=== PATIENT | female | born 1940 | race Caucasian/White ===

== ENCOUNTER 2016-09-25 12:03 | Emergency (ER) | payer MEDICARE ==
[2016-09-25 12:03] LABS: BASOPHILS 0.2 %; BASOPHILS ABSOLUTE 0.02 10/3/uL (0.0-0.16); EOSINOPHILS 0.8 %; EOSINOPHILS ABSOLUTE 0.09 10/3/uL (0.0-0.53); ER CBC TAT 0 Hrs 03 Mins; HEMATOCRIT 44.8 % (36.0-48.0); HEMOGLOBIN 14.8 g/dL (12.0-16.0); IMMATURE GRANULOCYTES 0.3 %; IMMATURE GRANULOCYTES ABSOLUTE 0.03 10/3/uL (0.0-0.11); LYMPHOCYTES ABSOLUTE 2.13 10/3/uL (0.67-4.30); MEAN CORPUSCULAR HEMOGLOB 30.5 pg (26.0-34.0); MEAN PLATELET VOLUME 11.6 fL (9.2-13.0); NEUTROPHILS 69.7 %; NEUTROPHILS ABSOLUTE 8.28 10/3/uL (2.02-8.40); PLATELET COUNT 158 10/3/uL (150-400); RBC DISTRIBUTION WIDTH 14.2 % (12.0-16.0); RED CELL COUNT 4.85 10/6/uL (4.0-5.6); WHITE BLOOD CELLS 11.9 10/3/uL (4.5-10.5)
[~2016-09-25 12:03] MED LIST: ADVIL PO; ALLEGRA180 PO; ASAB PO; ASPERCREME TOP; COZ50 PO; ELIQUIS 5 MG TAB5 MG PO; FLECAINIDE100 MG PO; FLECAINIDE50 MG PO; HALF81 PO; KLOR-CON M2020 MEQ PO; L20 PO; LOP25 PO; PACERONE400 MG PO; TOPXL100 PO; ZESTRIL10 MG PO
[2016-09-25 12:04] LABS: MANUAL DIFF NO %; MEAN CORPUSCULAR VOLUME 92.4 fL (80-100)
[2016-09-25 12:20] LABS: BUN (BLOOD UREA NITROGEN) 20 MG/DL (6-23); CALCIUM, SERUM 9.4 MG/DL (8.5-10.4); CHEST PAIN PROFILE TAT 0 Hrs 20 Mins; CHLORIDE, SERUM 106 MMOL/L (96-112); CO2 (CARBON DIOXIDE) 31 MMOL/L (24-34); CREATININE 1.03 MG/DL (0.55-1.02); GFR AFRICAN AMERICAN 62 ML/MIN (>=60); GFR NON AFRICAN AMERICAN 53 ML/MIN (>=60); GLUCOSE, SERUM 119 MG/DL (60-99); INTERNATIONAL NORMAL RATI 1.5 UNITS (-); PARTIAL THROMBO TIME 34.8 SEC (22.5-37.2); POTASSIUM, SERUM 3.9 MMOL/L (3.5-5.3); PROTIME (NOT ORD) 18.2 SEC (12.0-14.5); SODIUM, SERUM 144 MMOL/L (135-148); TROPONIN I <0.02 NG/ML (<0.05)
== END 2016-09-25 13:03 | disposition home or self-care (01) ==
LOC: ER 12:03
PROVIDERS: Emergency Medicine
DX: I48.91 Unspecified atrial fibrillation (principal); I10 Essential (primary) hypertension; Z88.0 Allergy status to penicillin; Z79.899 Other long term (current) drug therapy
CPT/HCPCS: 71010; 80048; 83735; 84484; 85025; 85610; 85730; 93005; 99285

== ENCOUNTER 2017-03-22 22:21 | Inpatient (IN) | payer MEDICARE ==
[~2017-03-22] VITALS: Ht 162.6 cm; Wt 79.8 kg
--- NOTE | ~2017-03-22 | HP ---
History And Physical [place] [id number] [place]. [address] NAME: DENVER MA : 42 STATUS : REG ER PAT#: [id number] AGE: 76 ADM/REG DATE : 03/22/17 MR#: [id number] REPORT SERV DATE: 03/23/17 DICTATED BY: KATELYN FAJARDO DATE: 03/23/17 REPORT STATUS : Draft TRANSCRIBED BY: PILI DATE: 03/23/17 DATE OF ADMISSION: 03/22/2017 CHIEF COMPLAINT: Loss of speech suddenly at 9 o'clock today. HISTORY OF PRESENT ILLNESS: The patient is a 76-year-old female with past medical history of hypertension, atrial fibrillation, tobacco use approximately three cigarettes a day who presents with family member after having sudden loss of speech at approximately 0915 hours when talking to her what appears to be sister. Family member called nephew who lives close by. He came in and evaluated patient and brought patient in for possible stroke type symptoms. Symptoms resolved after a few minutes. The patient never had these type symptoms before, has had dizziness type episodes years ago but not currently. All symptoms resolved fairly quickly. No additional residuals noted. No pain, chest pain, headache, nausea, vomiting, dizziness, slightly anxious about being in the hospital. She does have mild shortness of breath and no O2 at baseline. No diarrhea or dizziness. There is no worsening or relieving symptoms, and also symptoms appear to have resolved except for shortness of breath when lying down, improved while sitting up. The patient was reported to have history of atrial fibrillation but stopped Eliquis approximately 2 months ago secondary to cost prohibitive, was going to talk to her PCP at next visit in May for alternative but this visit was not until May. ADDITIONAL REVIEW OF SYSTEMS: For additional review of systems, 10-point review of systems negative except for that noted in the HPI. PAST MEDICAL HISTORY: Atrial fibrillation, hypertension, has had C-spine surgery and left shoulder, history of mild swallowing difficulties ever since her C-spine surgery but this has also remained stable. FAMILY HISTORY: Diabetes, coronary artery disease, hypertension. SOCIAL HISTORY: Currently three cigarettes a day smoker. No alcohol or illicits. Accompanied by a family at bedside. ALLERGIES: PENICILLIN. PHYSICAL EXAMINATION: VITAL SIGNS: Blood pressure initially 194/84, down to 180s over 70, temperature 98.5, pulse 70, respirations 16, O2 saturations 96% on 2 L. GENERAL: Slightly elderly, in no acute distress. EYES: No scleral icterus ENT: She does have pursed lip breathing. Tongue midline. RESPIRATORY: Bilateral expiratory wheeze. Mildly increased AP diameter and pursed lip breathing. No clubbing. CV: Regular rate. No rubs. No pedal edema. GI: Soft, nontender, nondistended. Bowel sounds positive. : Deferred. MUSCULOSKELETAL: Moves all extremities x4. History And Physical [address] [address] NAME: DENVER MA : 41 STATUS : REG ER PAT#: [id number] AGE: 76 ADM/REG DATE : 03/22/17 MR#: [id number] REPORT SERV DATE: 03/23/17 DICTATED BY: KATELYN FAJARDO DATE: 03/23/17 REPORT STATUS : Draft TRANSCRIBED BY: MODRuperto DATE: 03/23/17 SKIN: Warm, dry. LYMPH: No cervical or supraclavicular lymphadenopathy. HEME: No bleeding or bruising. NEURO: Alert and oriented. Normal vocal kodi. Symmetrical smile. Tongue midline. Reflexes symmetrical in Achilles and knees. Gait; walks with a walker, does have a mild limp on left side which is chronic per family from prior cervical surgery and fall. Otherwise symmetrical wrinkled brow, and EOMI. PSYCH: Appropriate mood and affect although mildly anxious about being in the hospital. DATA: Brain without contrast, noted for small approximately 14 x 16 mm suspect acute to subacute infarct left anterior frontal lobe cortex adjacent subcortical deep white matter. No additional acute findings. CBC: WBC count 14.3, H and H 13.5 and 40.8, platelets of 179, INR 1.1. CMP grossly within normal limits with mildly elevated blood sugar at 115, globulin at 4.3, troponin is negative. LFTs within normal limits. HOME MEDICATIONS: Still pending. DATA: EKG; normal sinus rhythm, rate of 66, QTc 436. Questionable septal changes but no acute ST changes. ASSESSMENT AND PLAN: 1. Likely new subacute stroke. 2. Hypertension. 3. Atrial fibrillation. 4. Leukocytosis. 5. Azotemia. 6. Likely early chronic obstructive pulmonary disease with smoking history. PLAN: 1. For acute stroke, symptoms resolved, non-tPA discussed with Dr. Toro ED physician but we will continue TIA stroke workup, MRI echocardiogram, carotid echoes. Unfortunately, the patient stopped Eliquis approximately two weeks ago although the patient does not recall or have a feelings of having acute atrial fibrillation and is currently normal sinus rhythm. This is most likely a component . We will order bubble study with echocardiogram, monitor on cardiac tele and continue initiation of order set. 2. Hypertension, permissive per protocol. Confirm home medications. 3. Atrial fibrillation. Stopped Eliquis secondary to cost prohibitive, currently in atrial fibrillation but will need to reassess. We will have Case Management evaluate additional anticoagulations. We will need to discuss with Neurology before restarting anticoagulation in acute to subacute stroke setting to prevent hemorrhagic conversion but we will continue with heparin subcu along with aspirin and additional recommendations pending echocardiogram. 4. Leukocytosis. Check UA, monitor. 5. Azotemia, IV fluids. 6. Likely early chronic obstructive pulmonary disease. We will give steroids, O2, does History And Physical [address] [address] NAME: DENVER MA : 41 STATUS : REG ER PAT#: [id number] AGE: 76 ADM/REG DATE : 03/22/17 MR#: [id number] REPORT SERV DATE: 03/23/17 DICTATED BY: KATELYN FAJARDO DATE: 03/23/17 REPORT STATUS : Draft TRANSCRIBED BY: PILI DATE: 03/23/17 have pursed lip breathing, approximately 3 cigarettes a day. Needs to stop smoking. Re-educated. We will place nicotine patch. Outpatient PFTs if not already completed to follow up with PCP as an outpatient. DDN/MODL Katelyn Fajardo MD / [id number]
--- NOTE | ~2017-03-22 | DS ---
Discharge Summary [facility] [address] [place]. [address] NAME: DENVER MA : 41 STATUS : DIS IN PAT#: [id number] AGE: 76 ADM/REG DATE : 03/24/17 MR#: [id number] REPORT SERV DATE: 03/29/17 DICTATED BY: CATHY CORBIN DATE: 03/28/17 REPORT STATUS : Draft TRANSCRIBED BY: PILI DATE: 03/28/17 ADMISSION DATE: 03/24/2017 DISCHARGE DATE: 03/28/2017 DISCHARGE DIAGNOSES: 1. 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 2. Atrial fibrillation with rapid ventricular response. 3. Hypertension. 4. Troponinemia. 5. Chronic obstructive pulmonary disease. 6. Borderline diabetes. 7. Asymptomatic left subclavian stenoses suspected. CONSULTANTS: Neurology, Dr. Washington; Cardiology, Dr. Cabrera with [facility]. FOLLOWUP: 1. The patient is to follow up with [facility], already has an appointment on 04/22/2017. 2. The patient is to follow up with Dr. Richmond, her it security analyst, in two to three weeks. Also, the patient will continue with home health, physical therapy, nursing, and aides. 3. The patient should follow up with Vascular Surgery Service in two months for possible left subclavian stenosis. IMAGIN. Echocardiogram with the ejection fraction of 55% with mild diastolic dysfunction. 2. CT of the brain without contrast, 03/22/2017, with a small 14 x 16 mm suspected acute to subacute infarct in the left anterior frontal lobe cortex and adjacent subcortical deep white matter. 3. MRI of the brain showing evidence of an old left frontal infarction with a small partially hemorrhagic, stable. Mild atrophy. No acute infarct or bleed. 4. MRA of the brain and neck showing atherosclerotic changes in the MCA M3 segment on the right. No evidence of any intracranial vessel cut off or high-grade stenosis or aneurysmal change. The superior portion of the internal carotids bilaterally demonstrate diffuse atherosclerotic changes, however, not associated with any high- grade stenoses. There appears to be a short-segment high-grade stenosis of the proximal subclavian distal to the vertebral artery. DISCHARGE MEDICATIONS: Aspirin 81 mg p.o. daily; Lipitor 80 mg p.o. q.h.s. for one week, then to resume 40 mg p.o. q.h.s.; Plavix 75 mg p.o. daily; diltiazem CD 120 mg p.o. daily; Danita 90 mg p.o. q.a.m.; losartan 50 mg p.o. b.i.d., hold for systolic blood pressure less than 135; metoprolol succinate 50 mg p.o. b.i.d.; Lasix 40 mg p.o. q.a.m. p.r.n. per home dose; metoprolol-XL 500 mg p.o. b.i.d. with breakfast and supper. HOSPITALIST: 1. Dr. Lan Fajardo, Dr. Felix Luevano, Dr. Corbin. 2. Other attending is Critical Care. Discharge Summary [address] [address] NAME: DENVER MA : 41 STATUS : DIS IN PAT#: [id number] AGE: 76 ADM/REG DATE : 03/24/17 MR#: [id number] REPORT SERV DATE: 03/29/17 DICTATED BY: CATHY CORBIN DATE: 03/28/17 REPORT STATUS : Draft TRANSCRIBED BY: PILI DATE: 03/28/17 HOSPITAL COURSE: This is a 3-[id number][age][id number]-female with a past medical history of chronic atrial fibrillation, hypertension presented with a sudden acute loss of speech while having a conversation with a family member around 9 o'clock that day, and the patient was brought to the emergency department. The patient has a history of atrial fibrillation and was placed on Eliquis, however, the patient has stopped taking her Eliquis due to cost as an outpatient. However, upon arrival to the ER, the patient had a CT of the brain with findings of a suspected acute versus subacute left frontal CVA. Neurology was consulted, and per discussion with Neurology and the ER physician, the patient was not a tPA candidate. She was admitted to the Hospitalist Service, placed on telemetry and Case Management was consulted for anticoagulation cost for the patient. However, the patient was later seen by Dr. Felix Luevano and also Cardiology was consulted for assistance for the patient's atrial fibrillation. The patient went into atrial fibrillation with RVR and was placed on a Cardizem drip and later developed significant sinus pauses and required transfer to ICU for management and cared for by ICU/Critical Care Services. The patient also had a MRI with findings of an old hemorrhagic conversion around her ischemic CVA. Due to her admitting findings, Neurology suspects that she did have a subacute CVA and also recommended that the patient is not an anticoagulation candidate due to the small hemorrhagic conversion found. The patient was later transferred out of the ICU, and the patient was later cared for by Dr. Corbin initiating on 03/26/2017. Also, the patient was seen by Speech Therapy in consultation. Also, the patient was seen by Physical Therapy. Initially, Physical Therapy recommended for the patient to be discharged to home with family for assistance. However, on the day of discharge, they later recommended for inpatient rehab considering that the patient would be at home alone for the majority of the day. Her son will be with her at night. However, with discussion with the son, the son states that he can perform his work at home, so that he can help to care for his mother and would provide 31/01 care. Also, the patient refused inpatient rehab and was alert and oriented. Also, the patient's cardiac medications were changed per Cardiology, and the patient's metoprolol succinate was changed to 50 mg p.o. b.i.d., and the patient was continued also on diltiazem CD at 120 mg p.o. q.a.m. per Cardiology recommendation. Also, the patient had an incidental finding of asymptomatic left subclavian stenosis on her MRI with recommendation to follow up with Vascular Surgery in two to three months per Neurology recommendations. The patient was educated on fall risks as well as diabetes management for her borderline diabetes, which according to chart dates back to 2014 for which the patient was unaware. The patient does not follow up with the primary care physician, and an appointment with [facility] was set up for the patient on 04/22/2017 for a new primary care. The patient was deemed stable for discharge and discharged to home with family who will care for the patient 31/01. Also, the patient was informed about increased risk of hemorrhagic bleed/hemorrhage while on aspirin and Plavix which was recommended by Neurology as well as the risk of recurrent CVAs in the future with atrial fibrillation. Neurology states the patient is not anticoagulation candidate, but did recommend for the patient to start aspirin and Plavix for which the patient initiated during her hospital course, per Neurology recommendations. This discharge required greater than 35 minutes. [facility] Discharge Summary [address] [place]. [address] NAME: DENVER MA : 41 STATUS : DIS IN PAT#: [id number] AGE: 76 ADM/REG DATE : 03/24/17 MR#: [id number] REPORT SERV DATE: 03/29/17 DICTATED BY: CATHY CORBIN DATE: 03/28/17 REPORT STATUS : Draft TRANSCRIBED BY: PILI DATE: 03/28/17 Cathy Corbin M.D. / [id number] CC: Janice Schaffer M.D. [facility]
--- NOTE | ~2017-03-22 | CN ---
Consultation Report [facility] [address] [place]. [address] NAME: DENVER PRATT : 42 STATUS : ADM Henry PAT#: [id number] AGE: 76 ADM/REG DATE : 03/23/17 MR#: [id number] REPORT SERV DATE: 03/23/17 DICTATED BY: JAY PIMENTEL DATE: 03/23/17 REPORT STATUS : Draft TRANSCRIBED BY: PILI DATE: 03/23/17 CARDIOLOGY CONSULTATION DATE OF CONSULTATION: 03/23/2017 PRIMARY MOTOR VEHICLE LECTURER: Dr. Richmond. CHIEF COMPLAINT: Aphasia. REASON FOR CONSULTATION: Atrial flutter, abnormal troponin. SOURCE: The patient and her chart. HISTORY OF PRESENT ILLNESS: Ms. Pratt is a very pleasant 76-year-old white woman, patient of my partner, Dr. Richmond, with history of atrial fibrillation. She was on long-term anticoagulation with Eliquis but reportedly could not afford this and stopped it two or three months ago. She has had difficulty with rate control and has had chronic systolic congestive heart failure with last LVEF of 35% by most recent echo in July. She was in her usual state of health until last night about 9 p.m. when she was talking with her sister in-law on the phone and noticed expressive aphasia, which lasted several minutes. It then resolved, and she could speak again. She also had some visual changes like a dark curtain coming down both eyes though she could still see. She did not have any focal weakness. No palpitations or syncope. She has had occasional chest tightness but none in the last 24 hours. She does have dyspnea on exertion. She has noticed some hematuria as well and for that reason, and the inability to afford the medication, she did not take the Eliquis. REVIEW OF SYSTEMS: All other systems are negative. ALLERGIES: PENICILLINS. MEDICATIONS AT HOME: Included aspirin, Danita, metoprolol, losartan, and Lasix. CARDIAC RISK FACTORS: Include hypertension, former tobacco. Denies diabetes, cholesterol, or family history. SOCIAL HISTORY: The patient lives in [place]. She is . She has two children, alive and well. She is retired. FAMILY HISTORY: Negative for coronary disease at young age. PAST MEDICAL HISTORY: Significant for atrial fibrillation for the last three or four years. She has had two attempts at cardioversion without success. She has never had any ablation. She has had frequent UTIs. No history of stroke. Left elbow surgery, left knee surgery, Consultation Report [address] [place]. [address] NAME: DENVER PRATT : 42 STATUS : ADM Henry PAT#: [id number] AGE: 76 ADM/REG DATE : 03/23/17 MR#: [id number] REPORT SERV DATE: 03/23/17 DICTATED BY: JAY PIMENTEL DATE: 03/23/17 REPORT STATUS : Draft TRANSCRIBED BY: PILI DATE: 03/23/17 tonsillectomy, cataract surgery, and C-spine surgery. PHYSICAL EXAMINATION: GENERAL: She is a well-developed, well-nourished, elderly white woman, in no acute distress. VITAL SIGNS: Blood pressure 168/71, pulse is 110 and irregular, respirations 24, temperature 98 degrees, weight is 79.8 kilos, height is 162 cm. HEENT: Sclerae anicteric. Lips without cyanosis. Carotids 2+ and symmetrical. No bruits. No JVD. No thyromegaly. LUNGS: Clear to auscultation. No use of accessory muscles. HEART: Irregularly irregular with 2/6 harsh systolic murmur. No heaves or thrills. ABDOMEN: Positive bowel sounds. Soft, nontender. EXTREMITIES: Pulses 2+ and symmetrical. No cyanosis or clubbing. 1+ edema. BACK: No CVA tenderness. MUSCULOSKELETAL: Good tone. NEURO: Alert and oriented x3. EKG reveals atrial flutter with rapid ventricular response. Normal axis and intervals. Marked ST-T wave changes. Anterolateral and inferior, slightly more prominent than previous tracing. LABORATORY EXAMINATION: The brain CT without contrast reveals small approximate 14 x 16 mm suspected acute to subacute infarct, left anterior frontal lobe cortex, and adjacent subcortical deep white matter. The white count is 14.3, hemoglobin 13.5, hematocrit 40.5, platelets 179,000. INR 1.1. PTT of 32.2. Sodium 143, potassium 4.1, chloride 108, CO2 of 28, glucose 115, BUN 21, creatinine 0.82. Troponin of 0.02. The BNP level is 552. The glycated hemoglobin is 6.4. The second troponin is 0.77. Urinalysis: Specific gravity 1.020, pH 5.0, protein 30, glucose 150, small blood, 5 red cells, 1 white cell. The chest x ray reveals cardiomegaly with mild interstitial edema and trace pleural fluid. Arterial blood gas: PH 7.41, pCO2 of 42, pO2 of 79, oxygen saturation 95.5%. IMPRESSION: 1. Possible left brain stroke with transient aphasia. 2. Atrial flutter with rapid ventricular response, off metoprolol at home. 3. CHADS2 score of at least 4 for hypertension, age of 76, and stroke, off Eliquis for the past two or three months. She reportedly could not afford it. 4. Reported hematuria. 5. Congestive heart failure, acute on chronic systolic dysfunction. 6. Last left ventricular ejection fraction of 35%. 7. Moderate mitral regurgitation. 8. Small increase in troponin, probably secondary to the above. 9. Cardiac risk factors including hypertension and former tobacco use. RECOMMENDATIONS: 1. Agree with Neurology consult. Consultation Report [address] [place]. [address] NAME: DENVER PRATT : 42 STATUS : ADM Henry PAT#: [id number] AGE: 76 ADM/REG DATE : 03/23/17 MR#: [id number] REPORT SERV DATE: 03/23/17 DICTATED BY: JAY PIMENTEL DATE: 03/23/17 REPORT STATUS : Draft TRANSCRIBED BY: PILI DATE: 03/23/17 2. IV heparin when okay with Neurology. 3. Rate control with IV diltiazem for now. 4. Check echocardiogram. 5. Check TSH. 6. Consider atrial flutter ablation at a later time. 7. Check serial EKGs and enzymes. 8. Continue aspirin and beta-otis therapy. 9. Empiric statin therapy. 10.Consider ICU care. PEMA/PILI Jay Pimentel M.D. / [id number]
--- NOTE | ~2017-03-22 | CN ---
Consultation Report [facility] [address] [place]. [address] NAME: DENVER MA : 42 STATUS : ADM Henry PAT#: [id number] AGE: 76 ADM/REG DATE : 03/23/17 MR#: [id number] REPORT SERV DATE: 03/23/17 DICTATED BY: YANDEL WASHINGTON DATE: 03/23/17 REPORT STATUS : Draft TRANSCRIBED BY: MODRuperto DATE: 03/23/17 NEUROLOGY CONSULTATION DATE OF CONSULTATION: 03/23/2017 REASON FOR CONSULTATION: Expressive aphasia, possible stroke. PRIMARY CARE PHYSICIAN: None. HOSPITALIST: Felix Luevano Jr, MD HISTORY OF PRESENT ILLNESS: The patient is a 76-year-old female who came into the ER because she had a sudden loss of speech at approximately 9:15 this morning. She was apparently talking to her sister on the telephone and she was unable to get her words out. A family member called her nephew, who lives nearby. He went over to the patient's house and figured out quickly that she was having difficulty, so he brought her to [facility] for a possible stroke. Her symptoms resolved after a few minutes. She stated that she has never had this happened to her before. She has had several "dizzy" episodes years in the past but not anything currently. She denied any visual changes. She denied any numbness, tingling, or weakness in the extremities, or imbalance. She was, however, somewhat anxious about being placed in the hospital and evaluated for having a stroke. When questioned more extensively, the patient reported that she does have atrial fibrillation and she stopped her Eliquis two months ago because she could not afford it. She also mentioned that she does not have a primary care physician; she had one in the past, but has not actively sought to find another one. PAST MEDICAL HISTORY: Atrial fibrillation, hypertension, dysphagia, osteoarthritis, chronic back pain, degenerative joint disease, neuropathy, cervical myelopathy, and history of E coli sepsis from UTI. PAST SURGICAL HISTORY: C-spine surgery, left elbow surgery, and knee surgery. MEDICATIONS: Home medication list Includes Protonix 40 mg a day, Lipitor 40 mg q.h.s., Lopressor 50 mg b.i.d., Cozaar 50 mg daily, Claritin 10 mg daily, and MiraLAX one packet daily. ALLERGIES: PENICILLIN. SOCIAL HISTORY: The patient is a . She has two children. She is a housewife. She smokes three cigarettes a day. Denies use of alcohol or illicits. FAMILY HISTORY: The patient's father of colon cancer. Her mother of TB. She has five siblings, one at the age of 21 from a motor vehicle accident, other had an LA and prostate cancer, and one of her sisters from drug abuse. Consultation Report [address] [place]. [address] NAME: DENVER MA : 42 STATUS : ADM Henry PAT#: [id number] AGE: 76 ADM/REG DATE : 03/23/17 MR#: [id number] REPORT SERV DATE: 03/23/17 DICTATED BY: YANDEL WASHINGTON DATE: 03/23/17 REPORT STATUS : Draft TRANSCRIBED BY: MODL DATE: 03/23/17 REVIEW OF SYSTEMS: For pertinent positives, please refer to HPI. PHYSICAL EXAMINATION: VITAL SIGNS: The patient is a 76-year-old female who weighs 79.8 kg, stands 162.6 cm. She is afebrile. Heart rate varies from 85 to 220 (atrial fibrillation), blood pressure 179/75, respiratory rate 16, and O2 saturations on 3 L nasal cannula are 93%. NEUROLOGIC: The patient is anxious. She is awake. She is alert. Speech is clear. Language is fluent. Pupils are 3 mm. PERRLA. Cranial nerves 2 through 12 are relatively intact. However, the patient does have a right-sided facial droop. No tongue deviation. Uvula midline. No reported sensory deficits. Jxskus-hm-aznx, no ataxia. Vsfj-rv-lrph, no ataxia. No pronator drift. No asterixis, dysmetria, or tremor. Upper extremity strength is 5/5. No reported sensory deficits in the upper extremities. Upper DTRs 2+ bilaterally. Lower extremity strength is 4/5 on the left (chronic) and a 5/5 on the right. No reported sensory deficits. DTRs are 2+ bilaterally. Upgoing toes bilaterally. I did not get the patient up to ambulate since she is unstable with her dysrhythmias. NECK: No carotid bruits, JVD, or thyromegaly. CHEST: Lung sounds clear, diminished in the bases. CARDIAC: Irregular irregularity of atrial fibrillation with a grade 3/6 systolic murmur. LABORATORY DATA: CBC is normal. BMP normal. A1c 6.4. CT of the brain without contrast shows an acute/subacute infarct in the left anterior frontal lobe. Echo pending. Chest x-ray, cardiomegaly with mild interstitial edema and trace pleural fluid. NIH stroke scale is 2. ASSESSMENT/PLAN: At this point, the patient will be transferred to CCU bed 11 due to her arrhythmia status and acute stroke. 1. 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 The patient will undergo an MRI of the brain without gadolinium and an MRA of the head and neck with gadolinium. She will have an echocardiogram with bubble study. PT, OT, and Speech Therapy will be consulted. Case Management will be consulted for rehab therapy. I talked to her about risk factor reduction, and most importantly, the patient's systolic blood pressure needs to be 150 to 180 mmHg for cerebral perfusion pressure even though she is on a Cardizem drip.. 2. Atrial fibrillation with rapid ventricular rate. The patient will be on a Cardizem drip per Cardiology and heparin drip without a bolus. Again, I re-emphasized the importance of keeping her cerebral perfusion pressure elevated. Thank you again for including us in consultation. We will continue to follow with you. The patient's case and plan of care were discussed with my collaborating physician, Dr. Humphries Consultation Report [address] [address] NAME: DENVER MA : 42 STATUS : ADM Henry PAT#: [id number] AGE: 76 ADM/REG DATE : 03/23/17 MR#: [id number] REPORT SERV DATE: 03/23/17 DICTATED BY: YANDEL WASHINGTON DATE: 03/23/17 REPORT STATUS : Draft TRANSCRIBED BY: MODL DATE: 03/23/17 Felix. DICTATED BY: Sally Nj DNP, ACNP-FLACO HERNANDEZ/PILI Yandel Washington MD / [id number] CC: Felix Luevano Jr, MD NONE
[2017-03-23 01:09] LABS: BASOPHILS 0.2 %; BASOPHILS ABSOLUTE 0.03 10/3/uL (0.0-0.16); EOSINOPHILS 1.5 %; EOSINOPHILS ABSOLUTE 0.21 10/3/uL (0.0-0.53); HEMATOCRIT 40.8 % (36.0-48.0); HEMOGLOBIN 13.5 g/dL (12.0-16.0); IMMATURE GRANULOCYTES 0.3 %; IMMATURE GRANULOCYTES ABSOLUTE 0.04 10/3/uL (0.0-0.11); LYMPHOCYTES 20.9 %; LYMPHOCYTES ABSOLUTE 2.99 10/3/uL (0.67-4.30); MANUAL DIFF NO %; MEAN CORPUS HGB CONC 33.1 g/dL (32.0-36.0); MEAN CORPUSCULAR HEMOGLOB 30.6 pg (26.0-34.0); MEAN CORPUSCULAR VOLUME 92.5 fL (80-100); MEAN PLATELET VOLUME 11.2 fL (9.2-13.0); MONOCYTES 9.4 %; MONOCYTES ABSOLUTE 1.34 10/3/uL (0.21-1.20); NEUTROPHILS 67.7 %; PLATELET COUNT 179 10/3/uL (150-400); RBC DISTRIBUTION WIDTH 13.6 % (12.0-16.0); RED CELL COUNT 4.41 10/6/uL (4.0-5.6); WHITE BLOOD CELLS 14.3 10/3/uL (4.5-10.5)
[2017-03-23 01:16] LABS: INTERNATIONAL NORMAL RATI 1.1 UNITS (-); PARTIAL THROMBO TIME 32.2 SEC (22.5-37.2)
[2017-03-23 01:18] LABS: PROTIME (NOT ORD) 14.5 SEC (12.0-14.5)
[2017-03-23 01:27] LABS: A/G RATIO 0.9 (0.7-1.9); ALKALINE PHOSPHATASE 66 U/L (45-117); BUN (BLOOD UREA NITROGEN) 21 MG/DL (6-23); CALCIUM, SERUM 9.4 MG/DL (8.5-10.4); CHLORIDE, SERUM 108 MMOL/L (96-112); CO2 (CARBON DIOXIDE) 28 MMOL/L (24-34); CREATININE 0.82 MG/DL (0.55-1.02); GFR AFRICAN AMERICAN 81 ML/MIN (>=60); GFR NON AFRICAN AMERICAN 70 ML/MIN (>=60); GLOBULIN 4.3 G/DL (2.5-4.1); GLUCOSE, SERUM 115 MG/DL (60-99); POTASSIUM, SERUM 4.1 MMOL/L (3.5-5.3); SGOT(AST) 20 U/L (5-40); SGPT(ALT) 18 U/L (5-65); SODIUM, SERUM 143 MMOL/L (135-148); TOTAL BILIRUBIN 0.5 MG/DL (0-1.2); TOTAL PROTEIN 8.3 G/DL (6.0-8.5); TROPONIN I 0.02 NG/ML (<0.05)
[2017-03-23] MEDS ORDERED: TOPXL50 PO (03:14)
[2017-03-23] MEDS ORDERED: COZ50 PO (03:15)
[2017-03-23] MEDS ORDERED: L40 PO (03:15)
[2017-03-23] MEDS ORDERED: ALLEGRA180 PO (03:16)
[2017-03-23] MEDS ORDERED: ASAB PO (03:16)
[2017-03-23 04:10] LABS: ALLENS TEST Pos; BE (BASE EXCESS) -2.4 MEQ/L (0 +/- 2.5); DEVICE NC; HCO3 (ACTUAL BICARBONATE) 24.8 MEQ/L (23-27); HEMOBLOGIN CONTENT 14.3 G/DL (12-16); INSTRUMENT SERIAL # 8087; METHEMOGLOBIN 0.2 % (0-3); O2 CONTENT 18.4 VOL% (18-24); OPERATOR ID 33449; PCO2 (CO2 TENSION) 52 MMHG (35-45); PO2 (O2 TENSION) 80 MMHG (79-93); SAMPLE Arterial; pH 7.29 (7.37-7.43)
[2017-03-23 07:07] LABS: ALLENS TEST Pos; BE (BASE EXCESS) 1.1 MEQ/L (0 +/- 2.5); BIPAP 14/6 cm.H2O; HEMOBLOGIN CONTENT 13.5 G/DL (12-16); INSTRUMENT SERIAL # 8087; METHEMOGLOBIN 0.2 % (0-3); O2 CONTENT 17.8 VOL% (18-24); PCO2 (CO2 TENSION) 42 MMHG (35-45); PO2 (O2 TENSION) 79 MMHG (79-93); SAMPLE Arterial; pH 7.41 (7.37-7.43)
[2017-03-23 10:50] LABS: BASOPHILS 0.1 %; BASOPHILS ABSOLUTE 0.01 10/3/uL (0.0-0.16); EOSINOPHILS 0.1 %; EOSINOPHILS ABSOLUTE 0.01 10/3/uL (0.0-0.53); HEMATOCRIT 40.9 % (36.0-48.0); HEMOGLOBIN 13.1 g/dL (12.0-16.0); IMMATURE GRANULOCYTES 0.3 %; IMMATURE GRANULOCYTES ABSOLUTE 0.03 10/3/uL (0.0-0.11); LYMPHOCYTES 7.7 %; LYMPHOCYTES ABSOLUTE 0.79 10/3/uL (0.67-4.30); MANUAL DIFF NO %; MEAN CORPUSCULAR HEMOGLOB 29.9 pg (26.0-34.0); MEAN CORPUSCULAR VOLUME 93.4 fL (80-100); MEAN PLATELET VOLUME 10.7 fL (9.2-13.0); MONOCYTES 0.6 %; MONOCYTES ABSOLUTE 0.06 10/3/uL (0.21-1.20); NEUTROPHILS 91.2 %; NEUTROPHILS ABSOLUTE 9.39 10/3/uL (2.02-8.40); PLATELET COUNT 149 10/3/uL (150-400); RBC DISTRIBUTION WIDTH 13.7 % (12.0-16.0); RED CELL COUNT 4.38 10/6/uL (4.0-5.6); WHITE BLOOD CELLS 10.3 10/3/uL (4.5-10.5)
[2017-03-23 10:57] LABS: INTERNATIONAL NORMAL RATI 1.1 UNITS (-); PROTIME (NOT ORD) 13.9 SEC (12.0-14.5)
[2017-03-23 11:04] LABS: GLYCOHEMOGLOBIN (HbA1c) 6.4 % (4.7-6.1)
[2017-03-23 11:13] LABS: B NATRIURETIC PEPTIDE (BNP) 552.6 PG/ML (< 100.0)
[2017-03-23 11:38] LABS: CK-MB 6.2 NG/ML; PHOSPHORUS, SERUM 3.2 MG/DL (2.5-4.5)
[2017-03-23 11:40] LABS: CHOL/HDL RATIO(NOT ORDER) 3.5 (0-5); CKMB INDEX (NOT ORD) 4.2; FOLATE 36.7 NG/ML (>5.2)
[2017-03-23 11:41] LABS: TROPONIN I 0.68 NG/ML (<0.05); ULTRASENSITIVE TSH 0.428 MCIU/ML (0.358-3.740)
[2017-03-23 12:43] LABS: ASCORBIC ACID (UR NOT ORDER) NEG (NEG); BILIRUBIN, URINE NEGATIVE (NEG); KETONE, URINE TRACE MG/DL (NEG); LEUKOCYTE ESTERASE(NOT OR NEG (NEG); WBC (NOT ORDERED) (RFLEX) 1 (0-5)
[2017-03-23 15:22] LABS: CHOL/HDL RATIO(NOT ORDER) 3.3 (0-5)
[2017-03-23 15:54] LABS: ALBUMIN 3.8 G/DL (3.5-5.0); DIRECT BILIRUBIN 0.2 MG/DL (0.0-0.4); FREE T4 1.22 NG/DL (0.76-1.46); INDIRECT BILIRUBIN(NOT ORDER) 0.5 MG/DL (0.1-0.9); T4 (THYROXINE) TOTAL 9.8 MCG/DL (4.5-12.0); TOTAL BILIRUBIN 0.7 MG/DL (0-1.2); TOTAL PROTEIN 8.2 G/DL (6.0-8.5); ULTRASENSITIVE TSH 0.347 MCIU/ML (0.358-3.740)
[2017-03-23 15:55] LABS: FOLATE 29.1 NG/ML (>5.2)
[2017-03-23 18:29] LABS: CK-MB 7.3 NG/ML; CKMB INDEX (NOT ORD) 3.7; TROPONIN I 0.92 NG/ML (<0.05)
[2017-03-24 01:17] LABS: CK-MB 5.7 NG/ML
[2017-03-24 01:18] LABS: CKMB INDEX (NOT ORD) 3.5; TROPONIN I 0.61 NG/ML (<0.05)
[2017-03-24 04:02] LABS: BASOPHILS 0 %; EOSINOPHILS 0 %; HEMATOCRIT 37.2 % (36.0-48.0); HEMOGLOBIN 12.1 g/dL (12.0-16.0); IMMATURE GRANULOCYTES 0.2 %; IMMATURE GRANULOCYTES ABSOLUTE 0.02 10/3/uL (0.0-0.11); LYMPHOCYTES ABSOLUTE 1.18 10/3/uL (0.67-4.30); MEAN CORPUS HGB CONC 32.5 g/dL (32.0-36.0); MEAN CORPUSCULAR HEMOGLOB 30.3 pg (26.0-34.0); MEAN PLATELET VOLUME 11.4 fL (9.2-13.0); MONOCYTES 4.3 %; MONOCYTES ABSOLUTE 0.42 10/3/uL (0.21-1.20); NEUTROPHILS 83.5 %; NEUTROPHILS ABSOLUTE 8.19 10/3/uL (2.02-8.40); PLATELET COUNT 151 10/3/uL (150-400); RBC DISTRIBUTION WIDTH 13.5 % (12.0-16.0); WHITE BLOOD CELLS 9.8 10/3/uL (4.5-10.5)
[2017-03-24 04:05] LABS: MANUAL DIFF NO %
[2017-03-24 04:24] LABS: BUN (BLOOD UREA NITROGEN) 19 MG/DL (6-23); CALCIUM, SERUM 9.2 MG/DL (8.5-10.4); CHLORIDE, SERUM 108 MMOL/L (96-112); CO2 (CARBON DIOXIDE) 28 MMOL/L (24-34); CREATININE 0.65 MG/DL (0.55-1.02); GFR AFRICAN AMERICAN 101 ML/MIN (>=60); GFR NON AFRICAN AMERICAN 87 ML/MIN (>=60); POTASSIUM, SERUM 4.1 MMOL/L (3.5-5.3); SODIUM, SERUM 142 MMOL/L (135-148)
[2017-03-24 04:26] LABS: GLUCOSE, SERUM 156 MG/DL (60-99); TROPONIN I 0.53 NG/ML (<0.05)
[2017-03-25 05:10] LABS: BUN (BLOOD UREA NITROGEN) 21 MG/DL (6-23); CALCIUM, SERUM 9.6 MG/DL (8.5-10.4); CHLORIDE, SERUM 105 MMOL/L (96-112); CO2 (CARBON DIOXIDE) 28 MMOL/L (24-34); CREATININE 0.61 MG/DL (0.55-1.02); GFR AFRICAN AMERICAN 103 ML/MIN (>=60); GFR NON AFRICAN AMERICAN 89 ML/MIN (>=60); GLUCOSE, SERUM 156 MG/DL (60-99); POTASSIUM, SERUM 4.1 MMOL/L (3.5-5.3); SODIUM, SERUM 139 MMOL/L (135-148)
[2017-03-25 05:13] LABS: BASOPHILS 0 %; EOSINOPHILS 0 %; HEMATOCRIT 39.1 % (36.0-48.0); HEMOGLOBIN 12.9 g/dL (12.0-16.0); IMMATURE GRANULOCYTES 0.3 %; IMMATURE GRANULOCYTES ABSOLUTE 0.05 10/3/uL (0.0-0.11); LYMPHOCYTES 6.6 %; LYMPHOCYTES ABSOLUTE 1.12 10/3/uL (0.67-4.30); MEAN CORPUSCULAR HEMOGLOB 30.4 pg (26.0-34.0); MEAN PLATELET VOLUME 11.2 fL (9.2-13.0); MONOCYTES ABSOLUTE 0.51 10/3/uL (0.21-1.20); NEUTROPHILS 90.1 %; NEUTROPHILS ABSOLUTE 15.25 10/3/uL (2.02-8.40); PLATELET COUNT 163 10/3/uL (150-400); RBC DISTRIBUTION WIDTH 13.7 % (12.0-16.0); RED CELL COUNT 4.25 10/6/uL (4.0-5.6)
[2017-03-25 05:17] LABS: MANUAL DIFF NO %; WHITE BLOOD CELLS 16.9 10/3/uL (4.5-10.5)
[2017-03-25 19:53] LABS: ASCORBIC ACID (UR NOT ORDER) NEG (NEG); BILIRUBIN, URINE NEGATIVE (NEG); KETONE, URINE NEGATIVE (NEG); WBC (NOT ORDERED) (RFLEX) 8 (0-5)
[2017-03-25 19:54] LABS: LEUKOCYTE ESTERASE(NOT OR TRACE (NEG)
[2017-03-27 05:42] LABS: BASOPHILS 0 %; EOSINOPHILS 0 %; HEMATOCRIT 40.8 % (36.0-48.0); HEMOGLOBIN 13.6 g/dL (12.0-16.0); IMMATURE GRANULOCYTES 0.5 %; IMMATURE GRANULOCYTES ABSOLUTE 0.06 10/3/uL (0.0-0.11); LYMPHOCYTES 9.9 %; LYMPHOCYTES ABSOLUTE 1.26 10/3/uL (0.67-4.30); MEAN CORPUS HGB CONC 33.3 g/dL (32.0-36.0); MEAN CORPUSCULAR HEMOGLOB 30.3 pg (26.0-34.0); MEAN CORPUSCULAR VOLUME 90.9 fL (80-100); MEAN PLATELET VOLUME 11.2 fL (9.2-13.0); MONOCYTES 5.7 %; MONOCYTES ABSOLUTE 0.72 10/3/uL (0.21-1.20); NEUTROPHILS 83.9 %; NEUTROPHILS ABSOLUTE 10.65 10/3/uL (2.02-8.40); PLATELET COUNT 176 10/3/uL (150-400); RBC DISTRIBUTION WIDTH 13.4 % (12.0-16.0); RED CELL COUNT 4.49 10/6/uL (4.0-5.6); WHITE BLOOD CELLS 12.7 10/3/uL (4.5-10.5)
[2017-03-27 05:45] LABS: MANUAL DIFF NO %
[2017-03-27 05:52] LABS: CALCIUM, SERUM 9.2 MG/DL (8.5-10.4); CHLORIDE, SERUM 107 MMOL/L (96-112); CO2 (CARBON DIOXIDE) 28 MMOL/L (24-34); CREATININE 0.76 MG/DL (0.55-1.02); GFR AFRICAN AMERICAN 89 ML/MIN (>=60); GFR NON AFRICAN AMERICAN 77 ML/MIN (>=60); GLUCOSE, SERUM 157 MG/DL (60-99); POTASSIUM, SERUM 3.9 MMOL/L (3.5-5.3); SODIUM, SERUM 141 MMOL/L (135-148)
[2017-03-27 05:55] LABS: BUN (BLOOD UREA NITROGEN) 32 MG/DL (6-23)
[2017-03-28] MEDS ORDERED: LIPITOR40 PO (12:46)
[2017-03-28] MEDS ORDERED: CARDCD120 PO (12:47)
[2017-03-28] MEDS ORDERED: PLAVIX PO (12:47)
[2017-03-28] MEDS ORDERED: GLUCOPHXR PO ×2 (13:04→13:05)
== END 2017-03-28 17:02 | disposition home health service (06) | DRG 64 ==
LOC: ENRESERVDT → ENRESERVTM → ENRESERV → CANRESERV → ER 22:21 → CCU 03-23 05:53 → 1SO 03-23 05:53 → CCU 03-23 13:54 → 1SO 03-24 10:40 → CCU 03-24 10:40 → 1SO 03-25 13:25
PROVIDERS: Hospitalist; Internal Medicine; Internal Medicine Cardiovascular Disease; Nurse Practitioner; Specialist; Student in an Organized Health Care Education/Training Program
DX: I63.9 Cerebral infarction, unspecified (principal); I50.23 Acute on chronic systolic (congestive) heart failure; I48.92 Unspecified atrial flutter; G62.9 Polyneuropathy, unspecified; R47.01 Aphasia; R13.10 Dysphagia, unspecified; I48.0 Paroxysmal atrial fibrillation; E11.9 Type 2 diabetes mellitus without complications; J44.9 Chronic obstructive pulmonary disease, unspecified; I11.0 Hypertensive heart disease with heart failure; I70.8 Atherosclerosis of other arteries; E78.5 Hyperlipidemia, unspecified; F17.210 Nicotine dependence, cigarettes, uncomplicated; I34.0 Nonrheumatic mitral (valve) insufficiency; M54.9 Dorsalgia, unspecified; G89.29 Other chronic pain; Z79.82 Long term (current) use of aspirin; Z79.899 Other long term (current) drug therapy; Z91.14 Patient's other noncompliance with medication regimen; Z88.0 Allergy status to penicillin
CPT/HCPCS: 36600; 70450; 70544; 70548; 70551-52; 71010; 71020; 80048; 80053; 80061; 80076; 81001; 82140; 82533; 82550; 82553; 82607; 82746; 82805; 82962; 83036; 83735; 83880; 84100; 84436; 84439; 84443; 84481; 84484; 85025; 85610; 85730; 87641; 92523-GN; 93005; 94640; 94660; 97110-GP; 97116-GP; 97161-GP; 97166-GO; 97535-GO; 99285; A9270-GY; A9577; C8929; G8978-CK-GP; G8979-CJ-GP; J2920; J2930; Q9957